=== PATIENT | male | born 1995 | race Caucasian/White ===

== ENCOUNTER 2022-02-21 12:12 | Emergency (ER) | payer MEDICAID ==
[~2022-02-21] VITALS: Ht 182.9 cm; Wt 83.9 kg
[2022-02-21 12:16] VITALS: BP 136/72
--- NOTE | 2022-02-21 12:20 | NUR ---
26 Y/O MALE C/O EPIGASTRIC PAIN AND NAUSEA SINCE LAST NIGHT. DENIES V/D, REPORTS TAKING GAS X AND IBUPROFEN WITH MILD RELIEF. PT ALERT AND ORIENTED X4. PT DENIES CHEST PAIN, SOB, FEVER OR CHILLS. PMH: DENIES NKA
--- NOTE | 2022-02-21 12:21 | NUR ---
Patient ambulated with steady gait to bed 4.
--- NOTE | 2022-02-21 12:38 | NUR ---
DR TARANGO AT BEDSIDE EVALUATING PT
[2022-02-21] MEDS ORDERED: FAMO-90 PO (12:54)
[2022-02-21] MEDS ORDERED: ALUMINUM HYD/MAG/SIMETHICONE 30 ML UDC PO ONE (12:55)
[2022-02-21] MEDS ORDERED: DICYCLOMINE HCL LIQUID 20 MG, ALUMINUM HYD/MAG/SIMETHICONE 30 ML, LIDOCAINE VISCOUS 2% ... PO ONE ×3 (12:55)
[2022-02-21] MEDS ORDERED: FAMOTIDINE 20 MG TAB PO ONE (12:55)
[2022-02-21] MEDS ORDERED: ALUMINUM HYD/MAG/SIMETHICONE 30 ML UDC ONE (13:14)
[2022-02-21] MEDS ORDERED: DICYCLOMINE HCL LIQUID 10 MG/5 ML UDC ONE (13:14)
[2022-02-21 13:39] VITALS: BP 136/72
== END 2022-02-21 13:40 | disposition home or self-care (01) ==
LOC: MED 12:12
DX: K21.9 Gastro-esophageal reflux disease without esophagitis (principal); F32.9 Major depressive disorder, single episode, unspecified; Z79.899 Other long term (current) drug therapy; Z98.890 Other specified postprocedural states
CPT/HCPCS: 81002; 99284

== ENCOUNTER 2023-05-30 13:38 | Emergency (ER) | payer MEDICAID ==
[~2023-05-30] VITALS: Ht 182.9 cm; Wt 93.0 kg
[~2023-05-30 13:38] MED LIST: FAMO-90 PO
[2023-05-30 13:44] VITALS: BP 137/63; PULSE 68; RESP 17; TEMP 97.4; O2SAT 98
[2023-05-30 15:08] LABS: BASOPHILS # (AUTO) 0.2 K/uL (0.00-0.22); BASOPHILS % (AUTO) 2.3 % (0.0-2.0); EOSINOPHILS # (AUTO) 0.6 K/uL (0-0.4); EOSINOPHILS % (AUTO) 8.4 % (0.0-4.0); HEMATOCRIT 40.1 % (36-52); HEMOGLOBIN 13.6 g/dL (12.0-18.0); LYMPHOCYTES # (AUTO) 1.8 K/uL (2.0-11.5); LYMPHOCYTES % (AUTO) 25.7 % (20.5-51.1); MEAN CORPUSCULAR HEMOGLOBIN 32 pg (27-31); MEAN CORPUSCULAR HGB CONC 34 g/dL (33-37); MEAN CORPUSCULAR VOLUME 93.1 fL (80-94); MONOCYTES # (AUTO) 0.7 K/uL (0.8-1.0); MONOCYTES % (AUTO) 9.5 % (1.7-9.3); NEUTROPHILS # (AUTO) 3.7 K/uL (1.8-7.7); NEUTROPHILS % (AUTO) 54.1 % (42.2-75.2); PLATELET COUNT (AUTO) 213 K/uL (140-450); RED BLOOD CELL COUNT(AUTO) 4.31 MIL/uL (4.20-6.10); RED CELL DISTRIBUTION WIDTH 14.8 % (11.6-13.7); WHITE BLOOD COUNT (AUTO) 6.9 K/uL (4.8-10.8)
[2023-05-30 15:16] LABS: APPEARANCE,URINE CLEAR (CLEAR); BILIRUBIN,URINE NEGATIVE (NEGATIVE); BLOOD, URINE NEGATIVE (NEGATIVE); COLOR,URINE YELLOW (YELLOW); LEUKOCYTE ESTERASE ,URINE NEGATIVE (NEGATIVE); NITRITE, URINE NEGATIVE (NEGATIVE); PROTEIN,URINE NEGATIVE (NEGATIVE); UGLUCOSE NEGATIVE (NEGATIVE); UROBILINOGEN,URINE 0.2 EU/dL (0.2 - 1)
[2023-05-30 15:22] LABS: ALBUMIN 3.5 g/dL (3.4-5.0); ANION GAP 11.3 (8-16); CALCIUM 8.4 mg/dL (8.5-10.1); CARBON DIOXIDE 27.3 mmol/L (21-32); POTASSIUM 3.6 mmol/L (3.5-5.1); TOTAL BILIRUBIN 0.5 mg/dL (0.0-1.0); TOTAL PROTEIN, SERUM 6.6 g/dL (6.4-8.2)
[2023-05-30 15:25] VITALS: O2SAT 98
== END 2023-05-30 17:34 | disposition home or self-care (01) ==
LOC: MED 13:38
DX: R60.9 Edema, unspecified (principal); R53.81 Other malaise
CPT/HCPCS: 36415; 80053; 81003; 83880; 84484; 85025; 93005; 99284

== ENCOUNTER 2024-06-26 17:38 | Emergency (ER) | payer MEDICAID, OTHER ==
[~2024-06-26] VITALS: Ht 182.9 cm; Wt 94.3 kg
[2024-06-26 17:50] VITALS: BP 144/103; PULSE 88; RESP 18; TEMP 98.1; O2SAT 98
[2024-06-26] MEDS: ONDANSETRON 4 MG ODT PO ONE (19:18)
[2024-06-26] MEDS: NACL 0.9% 1,000 ML IV ONE (20:13)
[2024-06-26] MEDS: LORazepam 2 MG/ML VIAL IVP ONE (20:14)
[2024-06-26] MEDS: ONDANSETRON 4 MG/2 ML VIAL IVP ONE (20:14)
[2024-06-26 20:45] LABS: BASOPHILS # (AUTO) 0.1 K/uL (0.00-0.22); BASOPHILS % (AUTO) 0.7 % (0.0-2.0); EOSINOPHILS % (AUTO) 0.1 % (0.0-4.0); HEMATOCRIT 47.9 % (36-52); HEMOGLOBIN 16.4 g/dL (12.0-18.0); LYMPHOCYTES # (AUTO) 0.6 K/uL (2.0-11.5); LYMPHOCYTES % (AUTO) 7.9 % (20.5-51.1); MEAN CORPUSCULAR HEMOGLOBIN 33 pg (27-31); MEAN CORPUSCULAR HGB CONC 34 g/dL (33-37); MONOCYTES # (AUTO) 0.6 K/uL (0.8-1.0); MONOCYTES % (AUTO) 8.2 % (1.7-9.3); NEUTROPHILS # (AUTO) 6.4 K/uL (1.8-7.7); NEUTROPHILS % (AUTO) 83.1 % (42.2-75.2); PLATELET COUNT (AUTO) 262 K/uL (140-450); RED BLOOD CELL COUNT(AUTO) 4.95 MIL/uL (4.20-6.10); RED CELL DISTRIBUTION WIDTH 13.6 % (11.6-13.7); WHITE BLOOD COUNT (AUTO) 7.7 K/uL (4.8-10.8)
[2024-06-26 21:06] LABS: ANION GAP 14.1 (8-16); CALCIUM 9.3 mg/dL (8.5-10.1); CARBON DIOXIDE 29.7 mmol/L (21-32); POTASSIUM 3.8 mmol/L (3.5-5.1)
[2024-06-26 22:42] VITALS: BP 128/82; PULSE 80; RESP 14; TEMP 98; O2SAT 98
== END 2024-06-26 22:42 | disposition home or self-care (01) ==
LOC: MED 17:38
DX: F10.239 Alcohol dependence with withdrawal, unspecified (principal); Z79.899 Other long term (current) drug therapy
CPT/HCPCS: 36415; 80048; 85025; 96361; 96374; 96375; 99284; J2060; J2405; J7030; Q0162